=== PATIENT | male | born 1965 | race American Indian/Alaskan Native ===

== ENCOUNTER 2016-09-01 15:02 | Emergency (ER) | payer OTHER ==
[2016-09-01 15:14] VITALS: BP 131/86
[2016-09-01] MEDS ORDERED: TYLENOL PO ONE (15:14)
[2016-09-01] MEDS ORDERED: ROBITUSSIN AC PO ONE (16:21)
[2016-09-01] MEDS ORDERED: MOTRIN PO ONE (16:21)
--- NOTE | 2016-09-01 16:42 | Emergency Department Report ---
ED General Adult HPI - General Chief complaint: Upper Respiratory Infection Stated complaint: FEVER/COUGH/COLD/MUCUS Time Seen by Provider: 09/01/16 16:14 Source: patient, family Mode of arrival: Ambulatory Limitations: No Limitations - History of Present Illness Initial comments: PT c/o productive cough x 2 days. PT states he is producing white - yellow mucous. PT denies known sick contacts. PT states he has been taking Tylenol and Dayquil for this at home - without relief, last dose at home was 1245. PT states he has a hx of influenza and states that when he had influenza, he felt worse than he currently feels. MD Complaint: fever/ cough Onset/Timin -: Gradual, days(s) Location: head, chest, back Radiation: non-radiation Severity scale (0 -10): 8 Quality: aching Consistency: constant Improves with: none Associated Symptoms: cough, fever/chills, loss of appetite, malaise. denies: nausea/vomiting Treatments Prior to Arrival: other (Tylenol at 1245 ) - Related Data Previous Rx's Medication Instructions Recorded Last Taken Type Benzonatate [Tessalon Perles] 100 mg PO Q8HR PRN #12 capsule 09/01/16 Unknown Rx Ibuprofen [Motrin] 600 mg PO Q8H PRN #15 tablet 09/01/16 Unknown Rx guaiFENesin/CODEINE [Robitussin AC] 5 ml PO QID PRN #60 oral.liqd 09/01/16 Unknown Rx Allergies Allergy/AdvReac Type Severity Reaction Status Date / Time No Known Allergies Allergy Unverified 09/01/16 15:10 ED Review of Systems ROS: Stated complaint: FEVER/COUGH/COLD/MUCUS Other details as noted in HPI Comment: All other systems reviewed and negative Constitutional: chills, fever, malaise Respiratory: cough, other (productive cough ) Gastrointestinal: other (decreased appetite ) Musculoskeletal: back pain, myalgia ED Past Medical Hx - Past Medical History Previous Medical History?: No - Surgical History Past Surgical History?: No - Social History Smoking Status: Never Smoker Substance Use Type: None - Medications Home Medications: Home Medications Medication Instructions Recorded Confirmed Last Taken Type Benzonatate [Tessalon Perles] 100 mg PO Q8HR PRN #12 capsule 09/01/16 Unknown Rx Ibuprofen [Motrin] 600 mg PO Q8H PRN #15 tablet 09/01/16 Unknown Rx guaiFENesin/CODEINE [Robitussin AC] 5 ml PO QID PRN #60 oral.liqd 09/01/16 Unknown Rx ED Physical Exam - General Limitations: No Limitations General appearance: alert, in no apparent distress - Head Head exam: Present: atraumatic, normocephalic, normal inspection - Eye Eye exam: Present: normal appearance. Absent: conjunctival injection - ENT ENT exam: Present: normal orophraynx, mucous membranes moist, TM's normal bilaterally, normal external ear exam, other (clear nasal drainage noted, clear post nasal drainage ) - Neck Neck exam: Present: normal inspection. Absent: tenderness - Respiratory Respiratory exam: Present: normal lung sounds bilaterally, other (pt coughing during exam ). Absent: respiratory distress, wheezes - Cardiovascular Cardiovascular Exam: Present: regular rate, normal rhythm, normal heart sounds - GI/Abdominal GI/Abdominal exam: Present: soft. Absent: tenderness - Extremities Exam Extremities exam: Present: normal inspection, full ROM - Back Exam Back exam: Present: normal inspection, full ROM. Absent: tenderness, CVA tenderness (R), CVA tenderness (L), paraspinal tenderness, vertebral tenderness - Neurological Exam Neurological exam: Present: alert, oriented X3 - Psychiatric Psychiatric exam: Present: normal affect, normal mood - Skin Skin exam: Present: warm, dry, intact ED Course Vital Signs 09/01/16 09/01/16 15:10 16:52 Temperature 101.3 F H 100.1 F H Pulse Rate 101 H 100 H Respiratory 20 Rate Blood Pressure 131/86 O2 Sat by Pulse 97 100 Oximetry - Reevaluation(s) Reevaluation #1: 09/01/16 16:45 Pt's temp repeat by myself during exam, his fever decreased to 100.9. PT aware he is not to take any other Tylenol containing products today. Reevaluation #2: 09/01/16 17:59 PT states he is feeling better. PT's temp 100.2. PT aware of XR result and plan of care. PT has no questions at this time. 09/01/16 18:01 PT now states that his symptoms started night. - Pulse Oximetry Interpretation Digit-Finger Initial Pulse Oximetry Readin Actions Taken: none ED Medical Decision Making - Differential Diagnosis viral uri, pna, bronchitis Critical care attestation.: If time is entered above; I have spent that time in minutes in the direct care of this critically ill patient, excluding procedure time. ED Disposition Clinical Impression: Viral URI with cough Fever Qualifiers: Fever type: unspecified Qualified Code(s): R50.9 - Fever, unspecified Disposition: DISCHARGED TO HOME OR SELFCARE Is pt being admited?: No Does the pt Need Aspirin: No Condition: Stable Instructions: Upper Respiratory Infection (ED), Viral Syndrome (ED) Additional Instructions: Rest Increase fluids No driving or ETOH after taking Robitusion AV no more Tylenol containing products today Prescriptions: Benzonatate [Tessalon Perles] 100 mg PO Q8HR PRN #12 capsule PRN Reason: Cough guaiFENesin/CODEINE [Robitussin AC] 5 ml PO QID PRN #60 oral.liqd PRN Reason: Cough Ibuprofen [Motrin] 600 mg PO Q8H PRN #15 tablet PRN Reason: Pain Referrals: PRIMARY CARE, [Primary Care Provider] - 3-5 Days Forms: Work/School Release Form(ED) Time of Disposition: 18:03
--- NOTE | 2016-09-01 17:25 | XRay Report ---
FINAL REPORT PROCEDURE: PA and lateral chest x-ray TECHNIQUE: PA and lateral chest radiographs were obtained. CPT 08699 HISTORY: fever/ cough COMPARISON: No prior studies are available for comparison. FINDINGS: Heart: Normal. Mediastinum/Vessels: Normal. Lungs/Pleural space: Normal. Bony thorax: No acute osseous abnormality. Other: IMPRESSION: Negative examination.
== END 2016-09-01 18:13 | disposition home or self-care (01) ==
LOC: ED 15:02
DX: J06.9 Acute upper respiratory infection, unspecified (principal); R50.81 Fever presenting with conditions classified elsewhere
CPT/HCPCS: 71020; 99283